=== PATIENT | male | born 1965 | race African-American/Black ===

== ENCOUNTER 2025-04-10 10:04 | Inpatient (IN) | payer OTHER ==
[2025-04-10 10:23] VITALS: BMI 20.3
[2025-04-10] MEDS ORDERED: BENZOCAINE/MENTHOL (CHLORASEPTIC ) LOZENGE MM PRN (11:05)
[2025-04-10] MEDS ORDERED: guaiFENesin 600 MG TABLET.ER (FP) PO PRN (11:05)
[2025-04-10] MEDS ORDERED: ACETAMINOPHEN 325 MG TABLET (FP) PO PRN (11:05)
[2025-04-10] MEDS ORDERED: NICOTINE POLACRILEX 2 MG LOZENGE BC PRN (11:05)
[2025-04-10] MEDS ORDERED: BENZONATATE 200 MG CAPSULE PO PRN (11:05)
[2025-04-10] MEDS ORDERED: LOPERAMIDE HCL 2 MG CAPSULE PO PRN (11:05)
[2025-04-10] MEDS ORDERED: MAG HYDROX/AL HYDROX/SIMETH 30 ML UNIT-DOSE CUP PO PRN (11:05)
[2025-04-10] MEDS ORDERED: NICOTINE POLACRILEX 2 MG GUM BUC PRN (11:05)
[2025-04-10] MEDS ORDERED: POLYETHYLENE GLYCOL (HEALTHYLAX) 3350 17 GM PACKET PO PRN (11:05)
[2025-04-10] MEDS ORDERED: MAGNESIUM HYDROX 2400MG/30ML ORAL SUSPENSION 30 ML CUP PO PRN (11:05)
[2025-04-10] MEDS ORDERED: NALOXONE (NARCAN) HCL 4 MG/0.1 ML SPRAY NS PRN (11:05)
[2025-04-10] MEDS: MELATONIN 5 MG TABLETS PO SCH (21:11)
[2025-04-10] MEDS: THIAMINE 100 MG TABLET PO SCH (21:11)
[2025-04-11] MEDS: PRENATAL VITAMINS W/ FOLIC ACID TABLET (FP) PO SCH (10:41)
[2025-04-11 11:34] LABS: MCHC 29.6 g/dl (32.3-36.5); MEAN CELL VOLUME 89.5 fl (79.0-92.2); MEAN PLT VOLUME 10.7 fl (9.4-12.4); RDW 15.4 % (12.2-16.1)
[2025-04-11 11:55] LABS: EPI CELLS 22 /uL (0-25.1); HYALINE CASTS 8 /uL (0-3.1); URINE APPEARANCE CLOUDY; URINE BACTERIA 133 /uL (0-1359); URINE BILIRUBIN NEGATIVE (NEGATIVE); URINE COLOR YELLOW; URINE GLUCOSE (UA) NEGATIVE (NEGATIVE); URINE KETONE TRACE (NEGATIVE); URINE LEUK ESTERASE TRACE (NEGATIVE); URINE NITRITE NEGATIVE (NEGATIVE); URINE PROTEIN NEGATIVE (NEGATIVE); URINE RBC 4 /uL (0-23.9); URINE UROBILINOGEN 0.2 mg/dL (0.2-1.0); URINE WBC 8 /uL (0-25.8)
[2025-04-11 12:16] LABS: CO2 30.0 mmol/L (21-32); GLUCOSE,RANDOM 148.0 mg/dL (74-106)
[2025-04-11 12:20] LABS: CREATININE 1.3 mg/dL (0.55-1.3); SGOT/AST 26.0 U/L (15-37); SGPT/ALT 24.0 U/L (13-61)
[2025-04-11 12:21] LABS: ALK PHOS 75.0 U/L (45-117); TOT PROT 7.4 g/dl (6.4-8.2)
[2025-04-11] MEDS: IBUPROFEN 400 MG TABLET (FP) PO PRN (21:04)
[2025-04-11] MEDS: hydrOXYzine PAMOATE 25 MG CAPSULE (FP) PO PRN (21:04)
[2025-04-12] MEDS: IBUPROFEN 600 MG TABLET (FP) PO PRN (14:53)
[2025-04-24 06:47] VITALS: BP 109/76; PULSE 76; RESP 16; TEMP 97.6
== END 2025-04-24 09:58 | disposition home or self-care (01) | DRG 772 ==
LOC: YASAS 10:04 → Y3NR 11:28 → Y5N 04-11 12:26
PROVIDERS: ADMIT Psychiatry & Neurology Pain Medicine; ATTEND Psychiatry & Neurology Pain Medicine
PROC: HZ42ZZZ Group Counseling for Substance Abuse Treatment, Cognitive-Behavioral (ICD-10-PCS; principal; 2025-04-10)
DX: F14.20 Cocaine dependence, uncomplicated (principal); F12.20 Cannabis dependence, uncomplicated; F10.20 Alcohol dependence, uncomplicated
CPT/HCPCS: 36415; 80053; 80305; 80307; 81003; 82962; 85027; 86780; 87811